=== PATIENT | male | born 1950 | race Caucasian/White ===

== ENCOUNTER 2021-05-05 12:42 | Inpatient (IN) | payer MEDICARE, SELFPAY ==
[2021-05-05] VITALS (17 sets, daily range): BP systolic 60–140; BP diastolic 40–79; PULSE 92–113; RESP 20–103; TEMP 37–37.3; O2SAT 85–101; BMI 16.0
--- NOTE | ~2021-05-05 | CT_ITS ---
EXAMINATION: CT brain wo con DATE: 05/05/2021 16:00 INDICATION: Altered mental status TECHNIQUE: Computed tomography (CT) of the head was performed without intravenous contrast. The dose- length product was 756.67 mGy-cm. Automated exposure control and iterative reconstruction technique w ere employed. COMPARISON: No prior studies for comparison. FINDINGS: Study limited by motion artifact. Brain parenchymal volume is normal for age. No midline sh ift. Basilar cisterns are patent. No acute intracranial hemorrhage, infarction, mass or mass effect. Paranasal sinuses and mastoids are pneumatized. There are scattered mild periventricular and subcorti chad white matter changes, most likely related to small vessel ischemic disease (microangiopathy). No depressed skull fractures. IMPRESSION: 1. No acute intracranial abnormality. 2: Chronic age-related findings. Reviewed, dictated and finalized at location A.
--- NOTE | ~2021-05-05 | XR_ITS ---
EXAMINATION: XR chest 1V portable EXAM DATE: 05/05/2021 14:10 INDICATION: Shortness of breath. TECHNIQUE: Portable AP frontal chest x-ray was obtained. There is no prior study for comparison. FINDINGS: There is rather extensive mid and lower lung zone airspace disease, indistinct reticulation . Probably pneumonia or edema. Cardiomediastinal silhouette is normal. There is no pneumothorax suspe cted. There are no pleural effusions. There are bony degenerative changes. IMPRESSION: Rather extensive mid and lower lung zone airspace disease probably edema or pneumonia. Reviewed, dictated and finalized at location A.
--- NOTE | 2021-05-05 13:59 | ECG_ITS ---
Measurements Intervals [place] Rate: 114 P: 80 CA: 126 QRS: -42 QRSD: 81 T: 140 QT: 294 QTc: 405 Interpretive Statements SINUS TACHYCARDIA LEFT AXIS DEVIATION LEFT VENTRICULAR HYPERTROPHY AND ST-T CHANGE CANNOT RULE OUT SEPTAL INFARCT, AGE INDETERMINATE ST-T WAVE ABNORMALITY IN ANTEROLAT/HIGH LAT LEADS- CONSIDER ISCHEMIA BASELINE WANDER- V3 ABNORMAL ECG Electronically Signed On 05-05-2021 15:56:17 CDT by Fab Bae D.O.
--- NOTE | 2021-05-05 14:09 | PC.NURSE ---
Mariajose from [facility] called stating that pts daughter called her stating that pt is dying and we need to get home Informed Mariajose we have not gotten any test results back yet. Mariajose requested that someone call her if we can with an update.
[2021-05-05 14:32] LABS: Basophils Absolute Auto 0.1 K/mm3 (0.0-0.1); Basophils Percent Auto 0.5 % (0.2-1.2); Eosinophils Absolute Auto 0.2 K/mm3 (0-0.3); Eosinophils Percent Auto 1.7 % (0-4.4); Hematocrit 48.3 % (42.0-52.0); Hemoglobin 15.6 g/dL (14.0-18.0); Immature Granulocyte Absolute 0.02 K/mm3 (0.00-0.031); Immature Granulocyte Percent A 0.2 % (0-0.5); Lymphocytes Absolute Auto 0.07 K/mm3 (0.9-3.2); Lymphocytes Percent Auto 0.6 % (18.3-44.2); Mean Corpuscular HGB Conc 32.3 g/dl (32-36); Mean Corpuscular Hemoglobin 33.1 pg (26-34); Mean Corpuscular Volume 102.5 fl (80-100); Mean Platelet Volume 10.3 fl (7.4-10.4); Monocytes Absolute Auto 0.6 K/mm3 (0.1-0.6); Monocytes Percent Auto 5.6 % (2.6-8.5); Neutrophils Absolute Auto 10.4 K/mm3 (1.3-6.7); Neutrophils Percent Auto 91.4 % (45.5-73.1); Platelet Count Result 224 k/mm3 (150-375); Red Blood Count 4.71 M/mm3 (4.6-6.20); Red Cell Distribution Width 13.2 % (11.5-14.5); White Blood Count 11.4 K/mm3 (4.5-10.0)
[2021-05-05 14:46] LABS: Alanine Aminotransferase 21 U/L (4-50); Alkaline Phosphatase 87 U/L (38-126); Anion Gap 3 mmol/L (8-16); Aspartate Amino Transferase 21 U/L (17-59); Bilirubin,Total 1.2 mg/dL (0.2-1.3); Blood Urea Nitrogen 51 mg/dL (9-20); Calcium 9.3 mg/dL (8.4-10.2); Carbon Dioxide 39 mmol/L (22-30); Chloride 101 mmol/L (98-107); Estimated CRCL calculation 50 ml/min; Estimated Glomerular Filt Rate > 60; Glucose 90 mg/dL (65-110); Lipase 19 U/L (23-300); Potassium 4.5 mmol/L (3.4-5.0); Sodium 143 mmol/L (137-145)
[2021-05-05] MEDS: BUMETANIDE INJ 1 MG/4 ML VIAL 2 MG IV PUSH (14:48)
[2021-05-05] MEDS: ALBUTEROL SULFATE NEB 2.5 MG/0.5 ML INH 5 MG INHALATION (14:59)
[2021-05-05 15:04] LABS: Alveolar/Arterial O2 Gradient 313.2 mmHg; Base Excess ABG 4.9 mEq/l (+/-2.0); Fractional Inspired Oxygen 60 %; HCO3 ABG 32.4 mEq/l (22.0-26.0); Oxygen Content ABG 17.7 %vol (16.0-22.0); Oxyhemoglobin 79.7 % THb (90.0-100.0); PCO2 ABG 59.2 mmHg (35.0-45.0); PO2 FiO2 Ratio Arterial Blood 0.82 %; Total Hemoglobin 15.8 g/dL (12.0-18.0); pH ABG 7.356 (7.350-7.450)
[2021-05-05 15:05] LABS: NT Pro B Type Natriuretic Pept 2770 pg/mL (5-100); Troponin I 0.086 ng/mL (0.000-0.034)
[2021-05-05 15:06] LABS: Device NASAL CANNULA; Modified Allen's Test Pass; Oxygen Saturation ABG 82.5 % (95.0-100.0); PO2 ABG 49.5 mmHg (80.0-100.0); Site Drawn LEFT RADIAL
[2021-05-05 15:12] LABS: Add Urine Microscopic? YES; Appearance Urine Cloudy (Clear); Bacteria Urine Trace /hpf; Bilirubin Urine Negative (Negative); Blood Urine 1+ (Negative); Color Urine Amber (Yellow); Glucose Urine UA Negative (Negative); Ketones Urine Negative (Negative); Leukocyte Esterase Ur Negative LEU/UL (Negative); Mucus Urine Few /lpf; Nitrate Urine Negative (Negative); Protein Urine 2+ mg/dL (Negative); Specific Grav Ur 1.025 (1.001-1.035); Squamous Epithelial Cell Urine Rare /hpf (Few)
--- NOTE | 2021-05-05 15:53 | PC.NURSE ---
Pt taken to CT scan
--- NOTE | 2021-05-05 16:00 | PM.IMHP ---
H&P: HPI History of Present Illness Date/Time: 05/05/21 16:15 Chief Complaint: Weak. Narrative: This is a 71-year-old male smoker with hypertension and hyperlipidemia who presented to the emergency department earlier today via EMS from home for evaluation of weakness. He is alert and oriented x2 at the time my evaluation however he is not the best historian and he cannot recall how he came to be at the hospital today and thus a majority of the following history is obtained via a review of his electronic medical records as well as discussions with his 2 daughters, Olena and Madonna, who are at bedside with the patient's permission. The patient's daughters typically speak with him every day and see him once or twice a week. Over the past couple of days he has not been acting like himself with increased weakness, swelling in the feet, and confusion. This morning a neighbor went to check on him and he was found laying half in the bed and half on the floor, and he did not recall how he had gotten there. His daughters and came over to check on him and they were worried that he may have had a stroke and he was sent to the emergency department. On EMS arrival his SpO2 was 50% on room air and he was eventually started on BiPAP in the emergency department. Chest x-ray showed diffuse lung disease consistent with pulmonary edema and/or pneumonia and he was given a dose of IV Bumex 2 mg as well as levofloxacin 750 mg. He also received a nebulizer and was given a dose of dexamethasone. With further testing he was found to have a CRP of 26.3 and a procalcitonin of 4.8 making pneumonia more likely. In the emergency department his blood pressures began to decline and he receive two doses of push dose phenylephrine with improvement in his blood pressures for a short period of time. With IV fluid boluses, his blood pressures did improve somewhat. The patient had difficulties tolerating the BiPAP and after lopng discussions with the patient and his daughters it was decided to remove the BiPAP and initiate comfort measures. They are hoping that he will be stable enough overnight to be discharged home with hospice in the morning. On re-evaluation the patient reports feeling much more comfortable off of the BiPAP. He is still alert but is confused and his last SpO2 was in the mid to upper 80s. The patient and family members are okay with continuing antibiotics and IV fluids overnight and wish for pain and anxiety medication if needed to keep him comfortable. Review of Systems Review of Systems: Twelve systems were reviewed. He has not had any sick contacts. In fact he rarely leaves the home since the start of the COVID pandemic. He is fully vaccinated against COVID-19 and has received his booster as well as his flu vaccination. He occasionally coughs and they have always attributed that to a smoker's cough. Additionally he has intermittent episodes of coughing while eating and drinking although he does not recall having any episodes of aspiration. No sinus congestion, rhinorrhea, otalgia, or odynophagia. He denies chest and pleuritic pain. He feels only mildly short of breath, not significantly so. He denies nausea, vomiting, and diarrhea. No dysuria. He has noticed somewhat of a decrease in urine output as well as darker colored urine over the last day or so. No history of venous thromboembolism. Except as documented, all other systems were reviewed and are negative. FORMERLY [facility], [facility] Past Medical History Medical History (Updated 05/05/21 @ 22:32 by Tiffany Carlos PA-C) Hyperlipidemia Hypertension Tobacco abuse Surgical History Surgical History (Updated 05/05/21 @ 22:29 by Tiffany Carlos PA-C) No history of previous surgery Family History Family History (Updated 05/05/21 @ 22:29 by Tiffany Carlos PA-C) Other Hypertension Social History Social History (Updated 05/05/21 @ 22:30 by Tiffany Carlos PA-C) Social History: The patient is and lives in [place]. H
[2021-05-05] MEDS: PHENYLEPHRINE 1,000 MCG/10 ML SYRINGE 100 MCG IV PUSH ×2 (16:24→18:54)
--- NOTE | 2021-05-05 17:06 | ED.WEAKNESS ---
HPI - Weakness General Chief complaint: Weakness Stated complaint: WEAKNESS Time Seen by Provider: 05/05/21 12:54 Source: family and EMS Mode of arrival: EMS Limitations: altered mental status and clinical condition History of Present Illness HPI Narrative: 71-year-old male Arrives from home via EMS for evaluation of altered mental status, with family having some concerns about stroke He apparently lives by himself and normally goes to the [place] for his [facility] care Known meds/diagnoses are hypertension and high cholesterol and he is on lisinopril and a statin He has an extensive smoking history as well but does not use inhalers for COPD as far as anyone knows For weeks to months he has been having increasing issues at home with some memory problems and some difficulty walking around His daughter says she speaks to him over the phone daily, and has retained an aide who goes to his home daily more to help with housekeeping and meals and such rather than is a true home health worker The daughter thinks that yesterday he may have sounded a little shaky and off on the phone Today he did not answer the phone at all and when the home theater specialist arrived sounds like they found him kind of draped on the sofa lethargic and not very responsive Initial EMS report was that his room air saturations were in the 50-60 range but improved with O2 Here, the patient is confused/lethargic and does not answer any of my questions or give any history Additionally there is kind of an odd dynamic at work where more or less simultaneously with the patient's transport to the hospital, his family member is trying to get him signed up with hospice, even though there is no knowledge on anyone's part that he has a pre-existing terminal illness of any sort Related Data Home Medications Medication Instructions Recorded Confirmed lisinopril 20 mg PO DAILY 05/05/21 05/05/21 simvastatin 20 mg PO DAILY 05/05/21 05/05/21 Allergies Allergy/AdvReac Type Severity Reaction Status Date / Time No Known Allergies Allergy Verified 05/05/21 13:12 Review of Systems Review of Systems: ROS unobtainable: Yes unobtainable due to medical condition and unobtainable due to mental status PMFSH Past Medical History Medical History Hyperlipidemia Hypertension Tobacco abuse Social History Social History Social History: The patient lives in [place]. He is a smoker. Exam Const: General: cooperative Other: Elderly, frail, lethargic, chronically ill-appearing HENMT: Head: normal to inspection, normocephalic, atraumatic, no contusions and no hematomas Ears: external ears normal General nose exam: no epistaxis Eyes: Conjunctivae: conjunctivae normal EOM: EOMs intact bilaterally Neck: Neck: normal visual inspection, supple and no JVD Resp: Effort & Inspection: normal respiratory effort, labored and tachypneic Auscultation: diminished lung sounds and other (BS =) Cardio: Rate: regular rate and tachycardic Rhythm: regular rhythm Heart sounds: no murmurs GI: Inspection: non-distended GI Palp: No Guarding due to palpation present (GI) Skin: General skin exam: normal color and no rashes or lesions noted Neuro: Other: Lethargic, does arouse with painful stimulation and moves x4 Extrem: Other: Marked 3+ bilateral pedal edema Course Course Emergency Course: Quite a lengthy conversation with family about treatment goals and options as there is no documentation of medical POA and some inclination to just have him return home to diet with hospice, even though this is seemingly more of a acute illness than culmination of chronic illness Ultimately chest x-ray looked wet and he was plainly fluid overloaded and he was diuresed, he received steroids and bronchodilators and a dose of antibiotics, there was consideration of intubation but he was able to be
[2021-05-05 17:31] LABS: Thyroid Stimulating Hormone Reflex 0.254 uIU/mL (0.465-4.68)
[2021-05-05] MEDS: ASPIRIN 81 MG CHEWABLE TABLET 324 MG PO (18:02)
--- NOTE | 2021-05-05 18:14 | PC.NURSE ---
Pt refused to chew aspirin, Informed Dr. Carvalho of this
--- NOTE | 2021-05-05 18:16 | PC.NURSE ---
EDP notified of pts blood pressure
[2021-05-05 18:30] LABS: Free T4 Free Thyroxine Reflex 1.77 ng/dL (0.78-2.19)
[2021-05-05 18:35] LABS: Alveolar/Arterial O2 Gradient 369.3 mmHg; Base Excess ABG 5.7 mEq/l (+/-2.0); Fractional Inspired Oxygen 70 %; HCO3 ABG 32.9 mEq/l (22.0-26.0); Oxygen Content ABG 19.2 %vol (16.0-22.0); Oxygen Saturation ABG 92.6 % (95.0-100.0); PO2 ABG 67.5 mmHg (80.0-100.0); PO2 FiO2 Ratio Arterial Blood 0.96 %; Total Hemoglobin 15.2 g/dL (12.0-18.0); pH ABG 7.372 (7.350-7.450)
[2021-05-05 18:36] LABS: Device NON-INVASIVE VENT; Non-Invasive Expiratory Pressure 6 CMH2O; Non-Invasive Inspiratory Pressure 14 CMH2O; Non-Invasive Vent Rate 4 /MIN
[2021-05-05 18:37] LABS: Site Drawn RIGHT BRACHIAL
[2021-05-05 19:24] LABS: CRP 26.3 mg/dL (<1.0)
[2021-05-05 19:34] LABS: Procalcitonin 4.8 ng/mL
[2021-05-05 19:49] LABS: Total Triiodothyronine (T3) 0.59 NG/ML (0.97-1.69)
[2021-05-05] MEDS: SODIUM CHLORIDE 0.9% IV 500 ML 999 ML IV CONT ×2 (20:37→21:16)
--- NOTE | 2021-05-05 22:32 | PC.NURSE ---
2006 spoke with pt who initially wishes to go home on hospice. Explained need for central line and blood pressure support and possible need for intubation. Pt initially agreeable but then indecisive. Wants family involved in decision making.
--- NOTE | 2021-05-05 22:33 | PC.NURSE ---
2024 spoke with daughter Madonna who states the family has been discussing hospice for a while and understands need for blood pressure support and possible intubation. With have daughter speak with father per speaker phone.
--- NOTE | 2021-05-05 22:35 | PC.NURSE ---
2034 pt and daughter discussed patients wishes. Patient and family understand that without blood pressure support and increased oxygenation pt condition will probably worsen and may be terminal. patient grimaces at possibility of intubation. Patient states he wants to made comfortable and doesn't want to pursue further care. Pt will be made comfort measures. Kalli Corado RN and Jessica Holguin RN in room and witnessed discussion.
[2021-05-05] MEDS: LACTATED RINGERS 1,000 ML 100 ML IV CONT (22:38)
[2021-05-05] MEDS: HYDROcodone/acetaminophen (*CRX) 5-325 MG TABLET 1 TAB PO (22:38)
[2021-05-05] MEDS: LORazepam INJ (*CRX) 2 MG/ML VIAL 1 MG IV PUSH (22:55)
[2021-05-05] MEDS: WATER, STERILE FOR INJECTION 10 ML VIAL XX (22:58)
--- NOTE | 2021-05-05 23:02 | PC.NURSE ---
This patient, John Correia, was admitted to IMU Room 232-01 on 05/05/21 at 1926. Patient/family oriented to hospital policies and general routines including ID bracelet, bed and alarms, visiting hours, pain management, procedures, bathroom and other care routines, personal items, smoking policy, room service/diet, and visiting hours. Information on how to activate the Rapid Response Team has been discussed. Patient/Family are encouraged to report perceived risks to care and to ask questions if they do not understand what they are told or what they should do.
--- NOTE | 2021-05-06 00:14 | PC.NURSE ---
05/05/21 at 2120.....Daughters Madonna and Olena here to see patient.I informed them of continued low blood pressures and low O2 sat. Tiffany FLORES notified of daughters arrival. She will come discuss the case with Madonna and Olena.
[2021-05-06 08:00] VITALS: O2SAT 92
[2021-05-06] MEDS: LACTATED RINGERS 1,000 ML 100 ML IV CONT (08:59)
--- NOTE | 2021-05-06 10:26 | PM.DS ---
DS: Admitting Diagnosis Discharge Date 05/06/2020 Admitting Diagnosis Acute respiratory hypoxia and hypercapnia DS: Discharge Diagnosis Discharge Diagnosis (1) Encounter for hospice care: Code(s): Z51.5 - Encounter for palliative care Status: Acute (2) Acute respiratory failure with hypoxia and hypercapnia: Code(s): J96.01 - Acute respiratory failure with hypoxia; J96.02 - Acute respiratory failure with hypercapnia Status: Acute (3) Sepsis: Code(s): A41.9 - Sepsis, unspecified organism Status: Acute (4) Pneumonia: Code(s): J18.9 - Pneumonia, unspecified organism Status: Acute (5) Elevated troponin: Code(s): R77.8 - Other specified abnormalities of plasma proteins Status: Acute (6) Lower extremity edema: Code(s): R60.0 - Localized edema Status: Acute (7) Tobacco abuse: Code(s): Z72.0 - Tobacco use Status: Acute (8) Hypertension: Code(s): I10 - Essential (primary) hypertension Status: Acute (9) Hyperlipidemia: Code(s): E78.5 - Hyperlipidemia, unspecified Status: Acute DS: Summary Hospital Course Hospital Course: Date of admission: 05/05/2021 Date of discharge: 05/06/2021 John Bragg is a 71-year-old male smoker with hypertension hyperlipidemia who presented to the emergency department 05/05/2021 for evaluation of weakness. He was noted to be hypoxic on arrival and was started on BiPAP, though he was not able to tolerate this well. He was also found to be hypotensive and he received phenylephrine. After extensive discussion with the admitting provider and the patient's family, the family ultimately decided to pursue comfort care. The BiPAP was removed and he was placed on 5 L supplemental oxygen. The family wished to proceed with hospice care, and [facility] was contacted. They have arranged all equipment for the patient to return home with hospice. I spoke with Mariajose from [facility] who gave verbal orders for p.r.n. Morphine and Ativan and this medication was sent to the pharmacy. His family will pick pulling machine tender this medication and hospice will be present to administer medication. He will be transported via ambulance to his home with hospice care. His two daughters are present at his bedside and they are comfortable with this plan. I discussed this case with my supervising physician, Dr. Real, who is aware of the patient's situation. Status at Discharge Functional status at discharge: bed bound Overall status at discharge: patient is not back to baseline Time Spent with Patient Time attestation: Total time spent providing and/or coordinating discharge services: 35 minutes Time spent: Greater than 30 minutes Exam Narrative: General: thin frail male lying supine in bed with mouth open Neuro: asleep, not arousable to verbal stimuli HEENMT: normocephalic, atraumatic,moist oral mucosa Respiratory: course breath sounds on anterior lung exam, nonlabored breathing Extremities: lower extremities slightly mottled and cool to palpation DS: Data Data Completed and Pending Labs on day of discharge: Labs from last 24 hours 05/05/21 05/05/21 05/05/21 18:32 18:23 18:23 WBC RBC Hgb Hct MCV MCH MCHC RDW Plt Count MPV Immature Gran % (Auto) Neut % (Auto) Lymph % (Auto) [place] % (Auto) Eos % (Auto) Baso % (Auto) Lymph # (Auto) [place] # (Auto) Eos # (Auto) Baso # (Auto) Abs Immat Gran (auto) Absolute Neuts (auto) Absolute Nucleated RBC Nucleated RBC % Puncture Site Right brachial ABG pH 7.372 ABG pCO2 58.0 H ABG pO2 67.5 L ABG PO2/FiO2 Ratio 0.96 ABG HCO3 32.9 H ABG O2 Saturation 92.6 L ABG O2 Content 19.2 ABG Base Excess 5.7 A-a Gradient 369.3 Oxyhemoglobin 90.0 Total Hemoglobin 15.2 O2 Delivery Device Non-invasive vent O2 Liters/Min Not Reportable Vent Rate 4 FiO2 70
--- NOTE | 2021-05-06 12:56 | PC.NURSE ---
Patient discharged to home on Hospice via ambulance at 12:25. Family was present and had no further questions at this time.
== END 2021-05-06 12:25 | disposition hospice, home (50) | DRG 951 ==
LOC: ANHED 13:11 → ANHIMU 18:01
PROVIDERS: Physician Assistant; Admitting Provider Internal Medicine; Emergency Provider Emergency Medicine; Visit Provider Physician Assistant
DX: Z51.5 Encounter for palliative care (principal); A41.9 Sepsis, unspecified organism; J18.9 Pneumonia, unspecified organism; J96.01 Acute respiratory failure with hypoxia; J96.02 Acute respiratory failure with hypercapnia; J44.1 Chronic obstructive pulmonary disease with (acute) exacerbation; I10 Essential (primary) hypertension; E78.5 Hyperlipidemia, unspecified; Z87.891 Personal history of nicotine dependence
CPT/HCPCS: 36415; 36600; 51701; 70450; 71045; 80053; 81001; 82805; 83605; 83690; 83880; 84145; 84439; 84443; 84480; 84484; 85025; 86140; 93005; 94002; 94640; 94660; 96365; 96375; 99285; A9270; J1100; J1956; J2060; J2370; J7040; J7120